=== PATIENT | female | born 1945 | race Caucasian/White ===

== ENCOUNTER 2023-09-09 17:25 | Outpatient (CLI) | payer MEDICARE, BC, SELFPAY ==
[2023-09-09 13:49] LABS: ALT 24 U/L (14-59); AST 15 U/L (15-37); Albumin 3.8 g/dL (3.4-5.0); Alkaline Phosphatase 72 U/L (46-116); Anion Gap 7.3 mmol/L (3-11); BUN 15 mg/dL (7-18); Bilirubin, Total 0.71 mg/dL (0.2-1.0); CO2 26.7 mmol/L (21.0-32.0); Calcium 10.4 mg/dL (8.5-10.1); Chloride 108 mmol/L (98-107); Estimated GFR 57.31 (mL/min/1.73m2); Glucose 120 mg/dL (74-106); Potassium 3.7 mmol/L (3.5-5.1); Sodium 142 mmol/L (136-145); Total Protein 6.6 g/dL (6.4-8.2)
--- OUTSIDE RECORDS SUMMARY | 2023-09-09 17:28 | XMS_ITS | Continuity of Care Document ---
Author Name Unknown Organization [facility] Address [address] [place] [address] Care Team Providers Care Assembler Steam And Gas Turbine Name Role Phone Donna Ramos Primary Care Physician Encounter [place] Date(s): 10/14/22 - 10/14/[address] [address] Encounter Diagnosis Breast mass in female(Discharge Diagnosis) - 10/14/22 Discharge Disposition: Home or Self Care Attending Physician: Donna Ramos MD Admitting Physician: Donna Ramos MD Referring Physician: Donna Ramos MD Allergies, Adverse Reactions, Alerts Substance Reaction Severity Status codeine Unknown Active Assessment and Plan Future Appointments Immunizations Given and Recorded Vaccine Date Status Refusal Reason SARS-CoV-2 (COVID-19) mRNA-1273 vaccine 01/15/21 R ecorded SARS-CoV-2 (COVID-19) mRNA-1273 vaccine 05/22/20 R ecorded SARS-CoV-2 (COVID-19) mRNA-1273 vaccine 04/24/20 R ecorded influenza, unspecified formulation 12/19/20 Record ed tetanus-diphth toxoids (Td) adult/adol 1 08/12/18 Recorded tetanus-diphth toxoids (Td) adult/adol 02/11/06 Re corded influenza virus vaccine, inactivated 12/16/17 Zaki rded influenza virus vaccine, inactivated 01/05/16 Zaki rded influenza virus vaccine, inactivated 01/13/15 Zaki rded influenza virus vaccine, inactivated 12/10/13 Zaki rded influenza virus vaccine, inactivated 12/18/12 Zaki rded influenza virus vaccine, inactivated 12/21/10 Zaki rded influenza virus vaccine, inactivated 01/12/10 Zaki rded influenza virus vaccine, inactivated 02/22/09 Zaki rded influenza virus vaccine, inactivated 02/25/08 Zaki rded influenza virus vaccine, inactivated 02/24/07 Zaki rded influenza virus vaccine, inactivated 01/08/06 Zaki rded pneumococcal 13-valent conjugate vaccine 01/05/16 Recorded pneumococcal 23-polyvalent vaccine 03/13/10 Record ed Novel [id number], all formulation 03/09/09 Recorded tetanus/diphth/pertuss (Tdap) adult/adol 02/11/06 Recorded varicella virus vaccine 03/10/00 Recorded zoster vaccine live 03/10/00 Recorded 1Result Comment: Educational information provided. Patient tolerated well. Medications cyclobenzaprine 5 mg oral tablet 5 mg = 1 tab, Oral, TID, PRN as needed for muscle spasm, # 30 tab, 0 Refill(s), Pharmacy: [facility] Start Date: 11/07/21 Status: Ordered lidocaine 3% topical cream See Instructions, Apply to area as needed for pain, # 30 g, 0 Refill(s), Pharmacy: [facility] Start Date: 08/20/22 Status: Ordered losartan 50 mg oral tablet 50 mg = 1 tab, Oral, Daily, # 90 tab, 4 Refill(s), [facility] Start Date: 03/29/22 Status: Ordered metoprolol succinate 25 mg oral tablet, extended release 25 mg = 1 tab, Oral, Daily, # 90 tab, 4 Refill(s), [facility] Start Date: 10/10/22 Status: Ordered omeprazole 20 mg oral delayed release capsule 20 mg = 1 cap, Oral, Daily, # 90 cap, 3 Refill(s), [facility] Start Date: 02/13/22 Status: Ordered promethazine 25 mg oral tablet 25 mg = 1 tab, Oral, BID, PRN as needed for motion sickness, # 20 tab, 0 Refill(s), Pharmacy: [facility] Start Date: 07/24/21 Status: Ordered Problem List Condition Confirmation Course Effective Dates Status H ealth Status Informant Anemia Confirmed Active Benign neoplasm of skin Confirmed 06/15/21 Active Benign paroxysmal positional vertigo Confirmed Active Cellulitis and abscess of toe Confirmed Active Chest pain Confirmed Active Chronic allergic conjunctivitis Confirmed Active Colitis Confirmed 08/28/20 Active Contact dermatitis Confirmed Active Epigastric pain Confirmed Active Eustachian tube disorder Confirmed Active Ganglion cyst Confirmed Active Herpesvirus infection Confirmed Active H/O nausea Confirmed Active Hypercalcemia Confirmed Active Hyperlipidemia Confirmed Active Hypertensive disorder Confirmed Active Idiopathic osteoarthritis Confirmed Active 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 of forearm Confirmed 06/15/21 Active Localized, primary osteoarthritis Confirmed Active Medial epicondylitis Confirmed Active Midline cystocele Confirmed Active Mixed hyperlipidemia Confirmed Active Motion sickness Confirmed Active Neuropathy Confirmed Active Osteoarthritis of knee Confirmed Active Pain in elbow Confirmed Active Pain in right foot Confirmed Active Medicare annual wellness visit, initial Confirmed Active Personal history of primary malignant neoplasm of breast Confirmed Active Polyp of colon Confirmed Active Primary malignant neoplasm of female breast Confirmed Active Procedures Procedure Date Related Diagnosis Body Site Status Mammogram - screening 01/17/22 Com pleted MRI of right upper arm 03/29/21 Co mpleted Mammogram 1 12/31/20 Completed Colonoscopy 2 02/13/[address] of abdomen and pelvis with contrast 12/28/19 Completed Colonoscopy 3 07/13/13 Completed Colonoscopy 4 07/02/10 Completed Lumpectomy 03/09/01 Completed Procedure on elbow 03/09/99 Comple geovanny Repair of cystocele 1995 Compl eted Hysterectomy 03/09/92 Completed Appendectomy 03/09/83 Completed Cholecystectomy 03/09/83 Completed Tubal ligation 03/09/72 Completed Tonsillectomy 5 Completed 1BI-RADS Category: 2 benign finding- no evidence of cancer 2wnl moderate dificulty, no gross evidence of colitis. 07/14/13 colitis. 4rt colon polyp x1 5as a child Social History Social History Type Response Smoking Status Smoking tobacco use: Former tobacco user;Never 1 entered on: 10/09/22 Sex Female 1smoked 1 pack/week for 5-7 years, when in Patient Care team information Care Team Personnel Name: Donna Ramos MD Position: Physician Member Role: Informed Provider Address: Address: [address] [address]- [place] Care Team Related Persons Name: JEFFY DE LA TORRE Address: Home [address] [place] [address], [phone] Name: JEFFY DE LA TORRE Address: Home [address] [place], [phone] Name: KEHINDE DE LA TORRE Address: [place] [address] [facility], [address] Name: DIMAS DE LA TORRE Address: Home
--- OUTSIDE RECORDS SUMMARY | 2023-09-09 17:29 | XMS_ITS | Continuity of Care Document ---
Author Name Unknown Organization [facility] Address [address] [place] [address] Care Team Providers Care Mild Disabilities Teacher Name Role Phone Donna Ramos Primary Care Physician Encounter [place] Date(s): 01/18/22 - 01/18/[address] [address] Encounter Diagnosis Medicare annual wellness visit, initial(Discharge Diagnosis) - 01/18/22 Discharge Disposition: Home or Self Care Attending Physician: Donna Ramos MD Admitting Physician: Donna Ramos MD Referring Physician: Donna Ramos MD Allergies, Adverse Reactions, Alerts Substance Reaction Severity Status codeine Unknown Active Assessment and Plan Future Appointments Future Scheduled Tests Laboratory* CBC w/ Diff 09/26/21 * Comprehensive Metabolic Panel 09/26/21 Immunizations Given and Recorded Vaccine Date Status [...] pneumococcal 23-polyvalent vaccine 03/13/10 Record ed Novel [id number], all formulation 03/09/09 Recorded tetanus/diphth/pertuss (Tdap) adult/adol 02/11/06 Recorded varicella virus vaccine 03/10/00 Recorded zoster vaccine live 03/10/00 Recorded 1Result Comment: Educational information provided. Patient tolerated well. Medications cyclobenzaprine 5 mg oral tablet 5 mg = 1 tab, Oral, TID, PRN as needed for muscle spasm, # 30 tab, 0 Refill(s), Pharmacy: [facility] Start Date: 11/07/21 Status: Ordered losartan 25 mg oral tablet 25 mg = 1 tab, Oral, Daily, # 90 tab, 4 Refill(s), Pharmacy: [facility] Start Date: 09/26/21 Status: Ordered omeprazole 20 mg oral delayed release capsule 20 mg = 1 cap, Oral, Daily, # 90 cap, 1 Refill(s) Start Date: 09/25/21 Status: Ordered predniSONE 20 mg oral tablet 40 mg = 2 tab, Oral, Daily, # 10 tab, 0 Refill(s), Pharmacy: [facility] Start Date: 11/07/21 Stop Date: 11/12/21 Status: Ordered promethazine 25 mg oral tablet 25 mg = 1 tab, Oral, BID, PRN as needed for motion sickness, # 20 tab, 0 Refill(s), Pharmacy: [facility] Start Date: 07/24/21 Status: Ordered Problem [...] Procedure Date Related Diagnosis Body Site Status MRI of right upper arm 03/29/21 Co [...] use: Former tobacco user;Never 1 entered on: 09/19/21 Sex Female 1smoked 1 pack/week for 5-7 years, when in Patient Care team information Care Team Personnel Name: Donna Ramos MD Position: Physician Member Role: Primary Care Physician Address: Address: [facility] [address] [address]- Care Team Related Persons Name: JEFFY DE LA TORRE Address: Home [address] [phone] Name: KEHINDE DE LA TORRE Address: Home [address] [place] [id number] Name: DIMAS DE LA TORRE Address: Home
--- OUTSIDE RECORDS SUMMARY | 2023-09-09 17:29 | XMS_ITS | Continuity of Care Document ---
Author Name Unknown Organization [facility] Address [address] [place] [address] Care Team Providers Care Crown Ceramist Name Role Phone Donna Ramos Primary Care Physician Encounter [facility] Date(s): 10/15/22 - 10/15/22 [facility] [address] [place] [address] Discharge Disposition: Home Allergies, Adverse Reactions, Alerts Substance Reaction Severity Status codeine Unknown Active Assessment and Plan Future Appointments Future Scheduled Tests Laboratory* PT/ INR 10/15/22 * Platelet Count 10/15/22 Radiology* MG Mammo Diagnostic Right 10/15/22 * US Breast Biopsy w/ Clip Right 10/15/22 Immunizations Given and Recorded Vaccine Date Status [...] 12/18/12 Zaki rded influenza virus vaccine, inactivated 10/14/11 Zaki rded influenza virus vaccine, inactivated 01/12/10 Zaki rded influenza virus vaccine, inactivated 02/22/09 Zaki rded influenza virus vaccine, inactivated 02/25/08 Zaki rded influenza virus vaccine, inactivated 02/24/07 Zaki rded influenza virus vaccine, inactivated 01/08/06 Zaki rded pneumococcal 13-valent conjugate vaccine 01/05/16 Recorded pneumococcal 23-polyvalent vaccine 03/13/10 Record ed Novel [id number], all formulation 03/09/09 Recorded tetanus/diphth/pertuss (Tdap) adult/adol 02/11/06 Recorded varicella virus vaccine 03/10/00 Recorded zoster vaccine live 03/10/00 Recorded 1Result Comment: Educational information provided. Patient tolerated well. Medications cyclobenzaprine 5 mg oral tablet 5 mg = 1 tab, Oral, TID, PRN as needed for muscle spasm, # 30 tab, 0 Refill(s), Pharmacy: [facility] Start Date: 11/07/21 Status: Ordered lidocaine 3% topical cream See Instructions, Apply to area as needed for pain, # 30 g, 0 Refill(s), Pharmacy: [facility] Start Date: 08/20/22 Status: Ordered losartan 50 mg oral tablet 50 mg = 1 tab, Oral, Daily, # 90 tab, 4 Refill(s), [facility] Start Date: 03/29/22 Status: Ordered metoprolol succinate 25 mg oral tablet, extended release 25 mg = 1 tab, Oral, Daily, # 90 tab, 4 Refill(s), [facility] Start Date: 10/10/22 Status: Ordered omeprazole 20 mg oral delayed release capsule 20 mg = 1 cap, Oral, Daily, # 90 cap, 3 Refill(s), Pharmacy: [facility] Start Date: 02/13/22 Status: Ordered promethazine 25 mg oral tablet 25 mg = 1 tab, Oral, BID, PRN as needed for motion sickness, # 20 tab, 0 Refill(s), Pharmacy: [facility] Start Date: 07/24/21 Status: Ordered Problem [...] Physician Member Role: Informed Provider Address: Address: [address] [address]- [place] Care Team Related Persons Name: JEFFY DE LA TORRE Address: Home [address] [place] [phone] Name: EJFFY DE LA TORRE Address: Home [address] [phone] Name: KEHINDE DE LA TORRE Address: [place] [address] [facility], [address] Name: DIMAS DE LA TORRE Address: Home
--- OUTSIDE RECORDS SUMMARY | 2023-09-09 17:29 | XMS_ITS | Continuity of Care Document ---
Author Name Unknown Organization [facility] Address [address] [place] [address] Care Team Providers Care Prosthetic Dentist Name Role Phone Richard Donna Curtis Primary Care Physician Encounter [place]CT[place] Date(s): 04/11/23 - 04/11/23 [facility] [address] [place] [address] Discharge Disposition: Home Allergies, Adverse Reactions, Alerts Substance Reaction Severity Status codeine Unknown Active Assessment and Plan Future Appointments Future Scheduled Tests Radiology* CT Chest w/o Contrast 04/11/23 Immunizations Given and Recorded Vaccine Date Status Refusal Reason SARS-CoV-2 (COVID-19) Moderna (cvx 312) 1 01/07/23 Recorded influenza virus vaccine, inactivated 2 12/11/22 Re corded influenza virus vaccine, inactivated 3 12/11/21 Re corded influenza virus vaccine, inactivated 12/16/17 [...] influenza virus vaccine, inactivated 01/08/06 Zaki rded zoster vaccine, inactivated 4 11/21/22 Recorded zoster vaccine, inactivated 5 09/13/22 Recorded SARS-CoV-2 mRNA (tozinameran 12y+) bival 6 12/17/21 Recorded SARS-CoV-2 (COVID-19) mRNA-1273 vaccine 01/15/21 R ecorded SARS-CoV-2 (COVID-19) mRNA-1273 vaccine 05/22/20 R ecorded SARS-CoV-2 (COVID-19) mRNA-1273 vaccine 04/24/20 R ecorded influenza, unspecified formulation 12/19/20 Record ed tetanus-diphth toxoids (Td) adult/adol 7 08/12/18 Recorded tetanus-diphth toxoids (Td) adult/adol 02/11/06 Re corded pneumococcal 13-valent conjugate vaccine 01/05/16 Recorded pneumococcal 23-polyvalent vaccine 03/13/10 Record ed Novel [id number], all formulation 03/09/09 Recorded tetanus/diphth/pertuss (Tdap) adult/adol 02/11/06 Recorded varicella virus vaccine 03/10/00 Recorded zoster vaccine live 03/10/00 Recorded 1Result Comment: Cintia 2Result Comment: high-dose quadrivalent Karissa 3Result Comment: karissa 4Result Comment: Karissa 5Result Comment: karissa 6Result Comment: Karissa 7Result Comment: Educational information provided. Patient tolerated well. Medications cyclobenzaprine 5 mg oral tablet 5 mg = 1 tab, Oral, TID, PRN as needed for muscle spasm, # 30 tab, 0 Refill(s), Pharmacy: [facility] Start Date: 11/07/21 Status: Ordered letrozole 2.5 mg oral tablet 2.5 mg = 1 tab, Oral, Daily, 0 Refill(s) Start Date: 04/11/23 Status: Ordered lidocaine 3% topical cream See Instructions, Apply to area as needed for pain, # 30 g, 0 Refill(s), Pharmacy: [facility] Start Date: 08/20/22 Status: Ordered losartan 50 mg oral tablet 1 tab, Oral, Daily, # 90 tab, 3 Refill(s), Pharm[facility]: [facility] Start Date: 12/23/22 Status: Ordered metoprolol succinate 25 mg oral tablet, extended release 25 mg = 1 tab, Oral, Daily, # 90 tab, 4 Refill(s), Pharmacy: [facility] Start Date: 10/10/22 Status: Ordered omeprazole 20 mg oral delayed release capsule 20 mg = 1 cap, Oral, Daily, # 90 cap, 3 Refill(s), [facility], 165.8, cm, 10/09/22 11:20:00 EDT, Height Start Date: 02/24/23 Status: Ordered promethazine 25 mg oral tablet 25 mg = 1 tab, Oral, BID, PRN as needed for motion sickness, # 20 tab, 0 Refill(s), Pharmacy: [facility] Start Date: 07/24/21 Status: Ordered Problem [...] Procedure Date Related Diagnosis Body Site Status Partial mastectomy 1 12/25/22 Comp leted Mammogram - screening 01/17/22 Com pleted MRI of right upper arm 03/29/21 Co mpleted Mammogram 2 12/31/20 Completed Colonoscopy 3 02/13/[address] of abdomen and pelvis with contrast 12/28/19 Completed Colonoscopy 4 07/13/13 Completed Colonoscopy 5 07/02/10 Completed Lumpectomy 03/09/01 Completed Procedure on elbow 03/09/99 Comple geovanny Repair of cystocele 1995 Compl eted Hysterectomy 03/09/92 Completed Appendectomy 03/09/83 Completed Cholecystectomy 03/09/83 Completed Tubal ligation 03/09/72 Completed Tonsillectomy 6 Completed 1Done at [facility] 2BI-RADS Category: 2 benign finding- no evidence of cancer 3wnl moderate dificulty, no gross evidence of colitis. 07/14/13 colitis. 5rt colon polyp x1 6as a child Social History Social History Type Response Smoking Status Smoking tobacco use: Former tobacco user;Never 1 entered on: 10/09/22 Sex Female 1smoked 1 pack/week for 5-7 years, when in 's Patient Care team information Care Team Personnel Name: Donna Ramos MD Position: Physician Member Role: Informed Provider Address: Address: [place] [address]- Care Team Related Persons Name: JEFFY DE LA TORRE Address: Home [address] [facility] [facility], [phone] Name: JEFFY DE LA TORRE Address: Home [address] [facility], [phone] Name: JEFFY DE LA TORRE Address: Home [place] [phone] Name: KEHINDE DE LA TORRE Address: Home [address] [facility], [address] Name: DIMAS DE LA TORRE
--- OUTSIDE RECORDS SUMMARY | 2023-09-09 17:29 | XMS_ITS | Continuity of Care Document ---
Author Name Unknown Organization [facility] Address [address] [place] [address] Care Team Providers Care Real Estate Assistant Name Role Phone Donna Ramos Primary Care Phys[facility] [address] [place] [address] Encounter Diagnosis Breast mass in female(Discharge Diagnosis) - 10/24/22 Discharge Disposition: Home or Self Care Attending Physician: Donna Ramos MD Admitting Physician: Donna Ramos MD Referring Physician: Donna Ramos MD Allergies, Adverse Reactions, Alerts Substance Reaction Severity Status codeine Unknown Active Assessment and Plan Future Appointments Diagnostic Tests Pending * Surgical Pathology [facility] 10/24/22 Immunizations Given and Recorded Vaccine Date Status [...] pneumococcal 23-polyvalent vaccine 03/13/10 Record ed Novel [id number], all formulation 03/09/09 Recorded tetanus/diphth/pertuss (Tdap) adult/adol 02/11/06 Recorded varicella virus vaccine 03/10/00 Recorded zoster vaccine live 03/10/00 Recorded 1Result Comment: Educational information provided. Patient tolerated well. Medications cyclobenzaprine 5 mg oral tablet 5 mg = 1 tab, Oral, TID, PRN as needed for muscle spasm, # 30 tab, 0 Refill(s), Pharmacy: [facility] Start Date: 11/07/21 Status: Ordered lidocaine 3% topical cream See Instructions, Apply to area as needed for pain, # 30 g, 0 Refill(s), Pharmacy: [facility] Start Date: 08/20/22 Status: Ordered losartan 50 mg oral tablet 50 mg = 1 tab, Oral, Daily, # 90 tab, 4 Refill(s), Pharmacy: [facility] Start Date: 03/29/22 Status: Ordered metoprolol succinate 25 mg oral tablet, extended release 25 mg = 1 tab, Oral, Daily, # 90 tab, 4 Refill(s), Pharmacy: [facility] Start Date: 10/10/22 Status: Ordered omeprazole 20 mg oral delayed release capsule 20 mg = 1 cap, Oral, Daily, # 90 cap, 3 Refill(s), Pharmacy: [facility] Start Date: 02/13/22 Status: Ordered promethazine 25 mg oral tablet 25 mg = 1 tab, Oral, BID, PRN as needed for motion sickness, # 20 tab, 0 Refill(s), Pharmacy: [facility] Start Date: 07/24/21 Status: Ordered Problem [...] 1 pack/week for 5-7 years, when in ' Patient Care team information Care Team Personnel Name: Donna Ramos MD Position: Physician Member Role: Informed Provider Address: Address: [address] Care Team Related Persons Name: JEFFY DE LA TORRE Address: Home [address] [place], [place] [address], [phone] Name: JEFFY DE LA TORRE Address: [place] [address] [facility], [id number] Name: JEFFY DE LA TORRE Address: [address] [place], [phone] Name: KEHINDE DE LA TORRE Address: [place] [address] [facility], [address] Name: DIMAS DE LA TORRE
--- OUTSIDE RECORDS SUMMARY | 2023-09-09 17:29 | XMS_ITS | Continuity of Care Document ---
Author Name Unknown Organization [facility] Address [address] [place] [address] Care Team Providers Care Gas Manager Name Role Phone Donna Ramos Kirsten Primary Care Physician Encounter [facility] Date(s): 12/10/21 - 12/10/21 [facility] [address] [place] [address] Discharge Disposition: Home or Self Care Attending Physician: Estela Mustafa PA-C Admitting Physician: Estela Mustafa PA-C Referring Physician: Estela Mustafa PA-C Allergies, Adverse Reactions, Alerts Substance Reaction Severity Status codeine Unknown Active Assessment and Plan Future Appointments Future Scheduled Tests Laboratory* CBC w/ Diff 09/26/21 * Comprehensive Metabolic Panel 09/26/21 Radiology* MG Mammo Screening Bilateral w/ Rodriguez 09/26/21 Immunizations Given and Recorded Vaccine Date [...] pneumococcal 23-polyvalent vaccine 03/13/10 Record ed Novel [id number], all formulation 03/09/09 Recorded tetanus/diphth/pertuss (Tdap) adult/adol 02/11/06 Recorded varicella virus vaccine 03/10/00 Recorded zoster vaccine live 03/10/00 Recorded 1Result Comment: Educational information provided. Patient tolerated well. Medications cyclobenzaprine 5 mg oral tablet 5 mg = 1 tab, Oral, TID, PRN as needed for muscle spasm, # 30 tab, 0 Refill(s), Pharmacy: [facility] Start Date: 11/07/21 Status: Ordered losartan 25 mg oral tablet 25 mg = 1 tab, Oral, Daily, # 90 tab, 4 Refill(s), Pharmacy: [facility] Start Date: 09/26/21 Status: Ordered omeprazole 20 mg oral delayed release capsule 20 mg = 1 cap, Oral, Daily, # 90 cap, 1 Refill(s) Start Date: 09/25/21 Status: Ordered predniSONE 20 mg oral tablet 40 mg = 2 tab, Oral, Daily, # 10 tab, 0 Refill(s), Pharmacy: [facility] Start Date: 11/07/21 Stop Date: 11/12/21 Status: Ordered promethazine 25 mg oral tablet 25 mg = 1 tab, Oral, BID, PRN as needed for motion sickness, # 20 tab, 0 Refill(s), Pharmacy: [facility] Start Date: 07/24/21 Status: Ordered Problem [...] years, when in Patient Care team information Personnel Name: Donna Ramos MD Address: Address: [address]
--- OUTSIDE RECORDS SUMMARY | 2023-09-09 17:29 | XMS_ITS | Continuity of Care Document ---
Author Name Unknown Organization [facility] Address [address] [place] [address] Care Team Providers Care Electrical Test Engineer Name Role Phone Donna Ramos Kirsten Primary Care Physician Encounter [facility] Date(s): 02/07/23 - 02/07/23 [facility] [address] [place] [address] Discharge Disposition: Home or Self Care Attending Physician: Rosie Garcia MD Admitting Physician: Rosie Garcia MD Referring Physician: Rosie Garcia MD Allergies, Adverse Reactions, Alerts Substance Reaction [...] pneumococcal 23-polyvalent vaccine 03/13/10 Record ed Novel [id number], all formulation 03/09/09 Recorded tetanus/diphth/pertuss (Tdap) adult/adol [...] spasm, # 30 tab, 0 Refill(s), Pharmacy: [facility] Start Date: 11/07/21 Status: Ordered lidocaine 3% topical cream See Instructions, Apply to area as needed for pain, # 30 g, 0 Refill(s), Pharmacy: [facility] Start Date: 08/20/22 Status: Ordered losartan 50 mg oral tablet 1 tab, Oral, Daily, # 90 tab, 3 Refill(s), Pharmacy: [facility] Start Date: 12/23/22 Status: Ordered metoprolol succinate 25 mg oral tablet, extended release 25 mg = 1 tab, Oral, Daily, # 90 tab, 4 Refill(s), [facility] Start Date: 10/10/22 Status: Ordered omeprazole 20 mg oral delayed release capsule 20 mg = 1 cap, Oral, Daily, # 90 cap, 3 Refill(s), Pharmacy: [id number] Start Date: 02/13/22 Status: Ordered promethazine 25 mg oral tablet 25 mg = 1 tab, Oral, BID, PRN as needed for motion sickness, # 20 tab, 0 Refill(s), Pharmacy: [facility] Start Date: 07/24/21 Status: Ordered Problem [...] 1 pack/week for 5-7 years, when in 20's Patient Care team information Care Team Personnel Name: Donna Ramos MD Position: Physician Member Role: Informed Provider Address: Address: [place] [address]- [place] Care Team Related Persons Name: JEFFY DE LA TORRE Address: Home [address] [facility], [phone] Name: JEFFY DE LA TORRE Address: Home [address] [facility], [phone] Name: JEFFY DE LA TORRE Address: Home [place] [phone] Name: KEHINDE DE LA TORRE Address: Home [address] [facility], [address] Name: DIMAS DE LA TORRE Name: DIMAS DE LA TORRE
--- OUTSIDE RECORDS SUMMARY | 2023-09-09 17:29 | XMS_ITS | Continuity of Care Document ---
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 Patient tolerated well. Medications cyclobenzaprine 5 mg oral tablet 5 mg = 1 tab, Oral, TID, PRN as needed for muscle spasm, # 30 tab, 0 Refill(s), Pharmacy: [facility] Start Date: 11/07/21 Status: Ordered lidocaine 3% topical cream See Instructions, Apply to area as needed for pain, # 30 g, 0 Refill(s), Pharmacy: [facility] Start Date: 08/20/22 Status: Ordered losartan 50 mg oral tablet 50 mg = 1 tab, Oral, Daily, # 90 tab, 4 Refill(s), [facility] Start Date: 03/29/22 Status: Ordered omeprazole 20 mg oral delayed release capsule 20 mg = 1 cap, Oral, Daily, # 90 cap, 3 Refill(s), Pharmacy: [facility] Start Date: 02/13/22 Status: Ordered promethazine 25 mg oral tablet 25 mg = 1 tab, Oral, BID, PRN as needed for motion sickness, # 20 tab, 0 Refill(s), Pharmacy: [facility] Start Date: 07/24/21 Status: Ordered Problem [...] 4rt colon polyp x1 5as a child Results Laboratory List Name Date Automated Diff 09/17/22 CBC w/ Diff 09/17/22 Comprehensive Metabolic Panel (CMP) 09/17 Hemoglobin A1c 09/17/22 Lipid Panel 09/17/22 Most recent to oldest [Reference Range]: 1 WBC [5.0-10.0 x10^3/mcL] 5.9 x10^3/mcL (09/17/22 7:25 AM) RBC [4.1-5.3 x10^6/mcL] 4.9 x10^6/mcL (09/17/22 7:25 AM) Neutro Auto [40.0-75.0 %] 63.9 % (09/17/22 7:25 AM) Lymph Auto [20.0-50.0 %] 24.3 % (09/17/22 7:25 AM) [place] Auto [2.0-15.0 %] 8.3 % (09/17/22 7:25 AM) Basophil Auto [0.0-1.0 %] 1.0 % (09/17/22 7:25 AM) BUN [7-18 mg/dL] 17 mg/dL (09/17/22 7:25 AM) Cholesterol Total [50-200 mg/dL] 208 mg/ dL *HI* (09/17/22 7:25 AM) LDL [0-130 mg/dL] 131 mg/dL *HI* (09/17/22 7:25 AM) Glucose Level [74-106 mg/dL] 114 mg/dL *HI* (09/17/22 7:25 AM) Potassium Level [3.5-5.1 mmol/L] 4.2 mmo l/L (09/17/22 AM) MCV [80.0-96.0 fL] 91.0 fL (09/17/22: AM) HDL [40-60 mg/dL] 49 mg/dL (09/17/22:25 AM) AST [15-37 unit/L] 14 unit/L *LOW* (09/17/22 AM) ALT [14-59 unit/L] 26 unit/L (09/17/22 7:25 AM) MCHC [31.0-35.0 g/dL] 32.9 g/dL (09/17/22 7: AM) Sodium Level [136-145 mmol/L] 138 mmol/L (09/17/22:25 AM) Hct [37.0-47.0 %] 44.4 % (09/17/22: AM) Triglycerides [0-150 mg/dL] 141 mg/dL (09/17/22 7:25 AM) Calcium Level [8.5-10.1 mg/dL] 10.1 mg/d L (09/17/22 AM) Albumin Level [3.4-5.0 g/dL] 3.6 g/dL (09/17/22 7:25 AM) Protein Total [6.4-8.2 g/dL] 6.8 g/dL (09/17/22 7:25 AM) MCH [26.0-32.0 pg] 29.9 pg (09/17/22 7:25 AM) Neutro Absolute 3.8 x10^3/mcL *NA* (09/17/22 7:25 AM) Bilirubin Total [0.2-1.0 mg/dL] 0.4 mg/d L (09/17/22 7:25 AM) Hgb [12.0-16.0 g/dL] 14.6 g/dL (09/17/22 7:25 AM) Alk Phos [46-146 unit/L] 71 unit/L (09/17/22 7:25 AM) Platelets [130-450 x10^3/mcL] 210 x10^3/ mcL (09/17/22 7:25 AM) CO2 [21-32 mmol/L] 30 mmol/L (09/17/22 7:25 AM) eGFR Non-AA [>=60] 57 *LOW* (09/17/22 7:25 AM) eGFR AA [>=60] 57 *LOW* (09/17/22 7:25 AM) Hemoglobin A1c [4.0-6.0 %] 5.7 % (09/17/22 7:25 AM) Chloride Level [98-107 mmol/L] 105 mmol/ L (09/17/22 7:25 AM) RDW-CV [11.5-14.5 %] 12.5 % (09/17/22 7:25 AM) Imm Gran Auto [0.0-0.9 %] 0.3 % (09/17/22 7:25 AM) Creatinine Level [0.55-1.02 mg/dL] 1.01 mg/dL (09/17/22 7:25 AM) Eos, Auto [1.0-6.0 %] 2.2 % (09/17/22 7:25 AM) Social History Social History Type Response Smoking Status Smoking tobacco use: Former tobacco user;Never 1 entered on: 09/19/21 Sex Female 1smoked 1 pack/week for 5-7 years, when in ' Patient Care team information Care Team Personnel Name: Donna Ramos MD Position: Physician Member Role: Informed Provider Address: Address: [address] Care Team Related Persons Name: JEFFY DE LA TORRE Address: Home [address] [place], [phone] Name: KEHINDE DE LA TORRE Address: [place] [address] [facility], [address] Name: DIMAS DE LA TORRE Address: Home
--- OUTSIDE RECORDS SUMMARY | 2023-09-09 17:29 | XMS_ITS | Continuity of Care Document ---
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 Name Role Phone Donna Ramos Primary Care Physician [facility] 06/09/23 - 06/09/23 [facility] [address] [place] [address] Encounter Diagnosis Right lower lobe pulmonary infiltrate(Discharge Diagnosis) - 06/09/23 Discharge Disposition: Home or Self Care Attending [...] Zaki rded influenza virus vaccine, inactivated 02/22/09 Zkai rded influenza virus vaccine, inactivated 02/25/08 Zaki [...] pneumococcal 23-polyvalent vaccine 03/13/10 Record ed Novel [id number], all formulation 03/09/09 Recorded tetanus/diphth/pertuss (Tdap) adult/adol [...] spasm, # 30 tab, 0 Refill(s), Pharmacy: [facility] Start Date: 11/07/21 Status: Ordered letrozole 2.5 mg oral tablet 2.5 mg = 1 tab, Oral, Daily, 0 Refill(s) Start Date: 04/11/23 Status: Ordered lidocaine 3% topical cream See Instructions, Apply to area as needed for pain, # 30 g, 0 Refill(s), Pharmacy: [facility] Start Date: 08/20/22 Status: Ordered losartan 50 mg oral tablet 1 tab, Oral, Daily, # 90 tab, 3 Refill(s), [facility]acy: [facility] Start Date: 12/23/22 Status: Ordered metoprolol succinate 25 mg oral tablet, extended release 25 mg = 1 tab, Oral, Daily, # 90 tab, 4 Refill(s), [facility] Start Date: 10/10/22 Status: Ordered omeprazole 20 mg oral delayed release capsule 20 mg = 1 cap, Oral, Daily, # 90 cap, 3 Refill(s), Pharmacy: [facility], 165.8, cm, 10/09/22 11:20:00 EDT, Height Start Date: 02/24/23 Status: Ordered Phenergan 25 mg oral tablet See Instructions, TAKE ONE TABLET BY MOUTH TWICE A DAY NEEDED FOR MOTION SICKNESS, # 20 tab, 1 Refill(s), Pharmacy: [facility], 165.8, cm, 10/09/22 11:20:00 EDT, Height, 75.55, kg, 04/11/23 10:33:00 EST, Weight Dosing Start Date: 04/21/23 Status: Ordered Problem List Condition Confirmation Course [...] 03/09/72 Completed Tonsillectomy 6 Completed 1Done at [facility] 2BI-RADS Category: 2 benign finding- no evidence [...] Physician Member Role: Informed Provider Address: Address: [place] [address]- [place] Care Team Related Persons Name: JEFFY DE LA TORRE Address: Home [address] [facility], [phone] Name: JEFFY DE LA TORRE Address: Home [address] [facility], [phone] Name: JEFFY DE LA TORRE Address: Home [place] [phone] Name: KEHINDE DE LA TORRE Address: Home [address] [facility], [address] Name: DIMAS DE LA TORRE
--- OUTSIDE RECORDS SUMMARY | 2023-09-09 17:29 | XMS_ITS | Continuity of Care Document ---
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 Name Role Phone Donna Ramos Primary Care Physician Encounter [facility] Date(s): 08/20/22 - 08/20/[address] [address] Discharge Disposition: Home or Self Care Attending Physician: Conner Garcia MD Admitting Physician: Conner Garcia MD Referring Physician: Conner Garcia MD Allergies, Adverse Reactions, Alerts Substance Reaction Severity Status codeine Unknown Active Assessment and Plan Future Appointments Diagnostic Tests Pending * Surgical Pathology [facility] 08/20/22 Future Scheduled Tests Laboratory* CBC w/ Diff 08/09/22 * CBC w/ Diff 09/26/21 * Comprehensive Metabolic Panel 08/09/22 * Comprehensive Metabolic Panel 09/26/21 * Lipid Panel 08/09/22 * Hemoglobin A1c 08/09/22 Immunizations Given and Recorded Vaccine Date Status [...] pneumococcal 23-polyvalent vaccine 03/13/10 Record ed Novel [id number], all formulation 03/09/09 Recorded tetanus/diphth/pertuss (Tdap) adult/adol 02/11/06 Recorded varicella virus vaccine 03/10/00 Recorded zoster vaccine live 03/10/00 Recorded 1Result Comment: Educational information provided. Patient tolerated well. Medications cyclobenzaprine 5 mg oral tablet 5 mg = 1 tab, Oral, TID, PRN as needed for muscle spasm, # 30 tab, 0 Refill(s), Pharmacy: [facility] Start Date: 11/07/21 Status: Ordered lidocaine 3% topical cream See Instructions, Apply to area as needed for pain, # 30 g, 0 Refill(s), Pharmacy: [facility] Start Date: 08/20/22 Status: Ordered losartan 50 mg oral tablet 50 mg = 1 tab, Oral, Daily, # 90 tab, 4 Refill(s), [facility] Start Date: 03/29/22 Status: Ordered omeprazole 20 mg oral delayed release capsule 20 mg = 1 cap, Oral, Daily, # 90 cap, 3 Refill(s), [facility] Start Date: 02/13/22 Status: Ordered promethazine 25 mg oral tablet 25 mg = 1 tab, Oral, BID, PRN as needed for motion sickness, # 20 tab, 0 Refill(s), Pharmacy: [facility] Start Date: 07/24/21 Status: Ordered Problem [...] Physician Member Role: Informed Provider Address: Address: [address] [address]- Care Team Related Persons Name: JEFFY DE LA TORRE Address: Home [place] [phone] Name: KEHINDE DE LA TORRE Address: [address], [address] Name: DIMAS DE LA TORRE Address: [place]
--- OUTSIDE RECORDS SUMMARY | 2023-09-09 17:29 | XMS_ITS | Continuity of Care Document ---
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 Patient tolerated well. Medications cyclobenzaprine 5 mg oral tablet 5 mg = 1 tab, Oral, TID, PRN as needed for muscle spasm, # 30 tab, 0 Refill(s), Pharmacy: [facility] Start Date: 11/07/21 Status: Ordered lidocaine 3% topical cream See Instructions, Apply to area as needed for pain, # 30 g, 0 Refill(s), Pharmacy: [facility] Start Date: 08/20/22 Status: Ordered losartan 50 mg oral tablet 50 mg = 1 tab, Oral, Daily, # 90 tab, 4 Refill(s), [facility] Start Date: 03/29/22 Status: Ordered metoprolol succinate 25 mg oral tablet, extended release 25 mg = 1 tab, Oral, Daily, # 90 tab, 4 Refill(s), [facility] Start Date: 10/10/22 Status: Ordered omeprazole 20 mg oral delayed release capsule 20 mg = 1 cap, Oral, Daily, # 90 cap, 3 Refill(s), Pharmacy: [facility] Start Date: 02/13/22 Status: Ordered promethazine 25 mg oral tablet 25 mg = 1 tab, Oral, BID, PRN as needed for motion sickness, # 20 tab, 0 Refill(s), Pharmacy: [facility] Start Date: 07/24/21 Status: Ordered Problem [...] Physician Member Role: Informed Provider Address: Address: [address] [address]- [place] Care Team Related Persons Name: JEFFY DE LA TORRE Address: Home [address] [place] [phone] Name: JEFFY DE LA TORRE Address: Home [address] [phone] Name: KEHINDE DE LA TORRE Address: [place] [address] [facility], [address] Name: DIMAS DE LA TORRE Address: Home
--- OUTSIDE RECORDS SUMMARY | 2023-09-09 17:29 | XMS_ITS | Continuity of Care Document ---
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 Name Role Phone Donna Ramos Primary [facility] 10/22/22 [facility] [address] [place] [address] Discharge Disposition: Home or Self Care Attending Physician: Donna Ramos MD Admitting Physician: Donna Ramos MD Referring Physician: Donna Ramos MD Allergies, Adverse Reactions, Alerts Substance Reaction Severity Status codeine Unknown Active Assessment and Plan Future Appointments Future Scheduled Tests Radiology* [facility] Mammo Diagnostic Right 10/15/22 * [...] pneumococcal 23-polyvalent vaccine 03/13/10 Record ed Novel [id number], all formulation 03/09/09 Recorded tetanus/diphth/pertuss (Tdap) adult/adol 02/11/06 Recorded varicella virus vaccine 03/10/00 Recorded zoster vaccine live 03/10/00 Recorded 1Result Comment: Educational information provided. Patient tolerated well. Medications cyclobenzaprine 5 mg oral tablet 5 mg = 1 tab, Oral, TID, PRN as needed for muscle spasm, # 30 tab, 0 Refill(s), Pharmacy: [facility] Start Date: 11/07/21 Status: Ordered lidocaine 3% topical cream See Instructions, Apply to area as needed for pain, # 30 g, 0 Refill(s), Pharmacy: [facility] Start Date: 08/20/22 Status: Ordered losartan 50 mg oral tablet 50 mg = 1 tab, Oral, Daily, # 90 tab, 4 Refill(s), Pharmacy: [facility] Start Date: 03/29/22 Status: Ordered metoprolol succinate 25 mg oral tablet, extended release 25 mg = 1 tab, Oral, Daily, # 90 tab, 4 Refill(s), Pharmacy: [facility] Start Date: 10/10/22 Status: Ordered omeprazole 20 mg oral delayed release capsule 20 mg = 1 cap, Oral, Daily, # 90 cap, 3 Refill(s), Pharmacy: [facility] Start Date: 02/13/22 Status: Ordered promethazine 25 mg oral tablet 25 mg = 1 tab, Oral, BID, PRN as needed for motion sickness, # 20 tab, 0 Refill(s), Pharmacy: [facility] Start Date: 07/24/21 Status: Ordered Problem [...] a child Results Laboratory List Name Date PT/ INR 10/22/22 Platelet Count 10/22/22 Most recent to oldest [Reference Range]: 1 Prothrombin Time [9.0-11.0 seconds] 9.6 seconds (10/22/22 11:25 AM) INR 1.0 1 *NA* (10/22/22 11:25 AM) Platelets [130-450 x10^3/mcL] 227 x10^3/ mcL (10/22/22 11:25 AM) 1Interpretive Data: INR 2-2.5 Prophylaxis: Short term DVT INR 2-3 Prophylaxis: hip and femur surgery Therapy: DVT (3 mos) PE (3-6 mos) TIA (termite treater) Atr Fib (termite treater) Syst. emb post MA Mitral Stenosis with emboli (shelter) Tissue prosthetic valves (3 mos min) INR 3-4.5 Therapy: recurrent DVT, PE (shelter) Prosthetic heart valves (termite treater) Social History Social History Type Response Smoking Status Smoking tobacco use: Former tobacco user;Never 1 entered on: 10/09/22 Sex Female 1smoked 1 pack/week for 5-7 years, when in 's Patient Care team information Care Team Personnel Name: Donna Ramos MD Position: Physician Member Role: Informed Provider Address: Address: [address] Care Team Related Persons Name: JEFFY DE LA TORRE Address: Home [address] [facility], [phone] Name: JEFFY DE LA TORRE Address: Home [address] [facility], [phone] Name: JEFFY DE LA TORRE Address: Home [address] [phone] Name: KEHINDE DE LA TORRE Address: Home [address] [facility], [address] Name: DIMAS DE LA TORRE Address: [place]
== END 2023-09-09 17:26 | disposition home or self-care (01) ==
LOC: LBO 17:27
PROVIDERS: Visit Provider Internal Medicine Hematology & Oncology
DX: C50.911 Malignant neoplasm of unspecified site of right female breast (principal); Z17.0 Estrogen receptor positive status [ER+]; Z79.811 Long term (current) use of aromatase inhibitors
CPT/HCPCS: 36415; 80053

== ENCOUNTER → 2024-02-12 10:19 | Outpatient (BNVA) | payer MEDICARE, BC, SELFPAY | PROVIDERS: PCP Internal Medicine; Referring Provider Internal Medicine | DX: M17.11 Unilateral primary osteoarthritis, right knee (principal) | CPT/HCPCS: 20610; 99203; J1010 ==

== ENCOUNTER 2024-03-11 03:52 | Outpatient (CLI) | payer MEDICARE, BC, SELFPAY ==
[2024-03-11 12:07] LABS: ALT 23 U/L (14-59); AST 15 U/L (15-37); Albumin 3.6 g/dL (3.4-5.0); Alkaline Phosphatase 62 U/L (46-116); Anion Gap 5.7 mmol/L (3-11); BUN 26 mg/dL (7-18); Bilirubin, Total 0.34 mg/dL (0.2-1.0); CO2 28.3 mmol/L (21.0-32.0); CREATININE 1.1 mg/dL (0.55-1.02); Calcium 10.5 mg/dL (8.5-10.1); Chloride 110 mmol/L (98-107); Estimated GFR 51.11 (mL/min/1.73m2); Glucose 76 mg/dL (74-106); Potassium 3.9 mmol/L (3.5-5.1); Sodium 144 mmol/L (136-145); Total Protein 6.6 g/dL (6.4-8.2)
== END 2024-03-11 03:53 | disposition home or self-care (01) ==
LOC: LBO 03:52
PROVIDERS: Internal Medicine Hematology & Oncology; PCP Internal Medicine; Visit Provider Nurse Practitioner Family
DX: C50.911 Malignant neoplasm of unspecified site of right female breast (principal); Z17.0 Estrogen receptor positive status [ER+]; Z79.811 Long term (current) use of aromatase inhibitors
CPT/HCPCS: 36415; 80053

== ENCOUNTER 2024-04-06 15:52 | Outpatient (CLI) | payer MEDICARE, BC, SELFPAY ==
--- NOTE | 2024-04-06 10:30 | DI.RAD_ITS ---
Exam(s) XR KNEE RT 2V AP,LAT XR STANDING ALIGNMENT EXAM: XR STANDING ALIGNMENT and XR knee RT 2 V CLINICAL HISTORY: knee pain, surgical planning. TECHNIQUE: 2D digital imaging was performed. Six images were obtained. COMPARISON: CR XR KNEE 3V RT from 01/07/2024 FINDINGS: BONES: The hips are well maintained. In the left knee, there is mild narrowing of the medial femoral tibial joint. Chondrocalcinosis is seen in the medial femoral tibial joint. In the right knee, the re is mild narrowing of the medial femoral tibial joint. Chondrocalcinosis is seen both medially and laterally. There is a moderate joint effusion. There is an enthesophyte at the superior patella. The ankles are well maintained.There is no significant leg length discrepancy. SOFT TISSUE: Normal. IMPRESSION: Arthrosis of the knees bilaterally. DATA REPOSITORY: RADIATION DOSE DELIVERED:
== END 2024-04-06 15:53 | disposition home or self-care (01) ==
LOC: DIORS 15:52
PROVIDERS: PCP Internal Medicine; Referring Provider Internal Medicine; Visit Provider Student in an Organized Health Care Education/Training Program
DX: M17.11 Unilateral primary osteoarthritis, right knee (principal)
CPT/HCPCS: 99214; 73560; 77073

== ENCOUNTER 2024-05-28 06:01 | Day surgery (SDC) | payer MEDICARE, BC, SELFPAY ==
--- NOTE | 2024-05-27 17:30 | W.ANESPRE ---
General Info Date of Service Date Performed: 05/28/24 Height: 5 ft 6 in Weight: 77.111 kg Body Mass Index (BMI): 27.4 Surgical Procedure: Operation Date: 05/28/24 08:00 Proposed Procedure Side Surgeon p Medial Unicondylar Knee Arthroplasty Right Mike Guthrie MD Meds Allergies and Home Medications Allergies Allergy/AdvReac Type Severity Reaction Status Date / Time codeine Allergy Unknown Unknown Verified 05/28/24 06:28 morphine AdvReac Intermediate Nausea Verified 05/28/24 06:28 Home Medication ?Medication ?Instructions ?Recorded atorvastatin 10 mg tablet 10 mg PO QPM 01/27/24 losartan 50 mg tablet 50 mg PO DAILY 01/27/24 metoprolol succinate 25 mg 25 mg PO DAILY 01/27/24 tablet,extended release 24 hr omeprazole 20 mg capsule,delayed 20 mg PO DAILY 01/27/24 release letrozole 2.5 mg tablet 2.5 mg PO DAILY 02/12/24 zoledronic acid 4 mg/5 mL 2 mg IV ONCE 02/12/24 intravenous solution cholecalciferol (vitamin D3) 50 50 mcg PO DAILY General Health 05/27/24 mcg (2,000 unit) capsule (Vitamin D3) acetaminophen 500 mg tablet 500 mg PO ONCE 05/28/24 (Acetaminophen Pain Relief) Current Visit Medications: Current Medications Generic Name Dose Route Start Last Admin Trade Name Christianq PRN Reason Stop Dose Admin Acetaminophen 1,000 mg 05/28/24 06:00 Acetaminophen 500 Mg Tab PO 05/28/24 23:59 PREOP ROBBIN Celecoxib 400 mg 05/28/24 06:00 Celecoxib 200 Mg Cap PO 05/28/24 23:59 PREOP ROBBIN Gabapentin 300 mg 05/28/24 06:00 Gabapentin 300 Mg Cap PO 05/28/24 23:59 PREOP ROBBIN Ringer's Solution 1,000 mls @ 30 mls/hr 05/28/24 06:00 IV 05/28/24 23:59 INFUSION ROBBIN Cefazolin Sodium/Dextrose 2 gm in 50 mls @ 100 mls/hr 05/28/24 06:00 Ancef Duplex IVPB 05/28/24 23:59 PREOP ROBBIN Tranexamic Acid/Sodium Chloride 1,000 mg in 100 mls @ 600 mls/hr 05/28/24 06:00 IVPB 05/28/24 23:59 PREOP ROBBIN IV Miscellaneous Supplies 1 each 05/28/24 06:00 Iv Access IV 05/28/24 23:59 DIRECTED ROBBIN Sodium Chloride 0 ml 05/28/24 06:00 Normal Saline Flush 10 Ml Syr IV 05/28/24 23:59 PRN PRN Sodium Chloride 0 ml 05/28/24 06:00 Normal Saline 10 Ml Vial IJ 05/28/24 23:59 DIRECTED PRN Sterile Water 0 ml 05/28/24 06:00 Water,Injection,Sterile 10 Ml Vial IJ 05/28/24 23:59 DIRECTED PRN PFSH Active Problems Active Problems: Problem Status Onset Code Arthritis of right knee Acute M17.11 Polyp of colon Acute K63.5 Neuropathy Acute G62.9 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 denies Benign paroxysmal positional vertigo Surgical History Surgical History History of tonsillectomy H/O tubal ligation History of elbow surgery History of cystocele repair History of colonoscopy History of cholecystectomy History of appendectomy History of hysterectomy History of partial mastectomy Tobacco Smoking/Tobacco Use Status: Former Tobacco Use Passive smoking exposure: No Alcohol Alcohol Intake: never Substance Use Substance use: Never Substance use type: does not use Vital Signs and Lab Results Lab Results Blood Type / Crossmatch: No Data to Display Complete Blood Count: No Data to Display Complete Metabolic Panel: No Data to Display Liver Function Panel: No Data to Display Coagulation Panel: No Data to Display Cardiac Panel: No Data to Display Arterial Blood Gas: No Data to Display Venous Blood Gas: No Data to Display Pancreas Panel: No Data to Display Thyroid Panel: No Data to Display Infectious Disease: No Data to Display Blood Cultures: No Data to Display Toxicology Panel: No Data to Display Anesthesia Assessment and Plan Anesthesia History Personal History: PONV Family History: No Family History of Anesthesia Complications Exercise Tolerance Exercise Tolerance: Metabolic Equivalents>4 Cardiac & Pulmonary Exam Cardiac Exam: Normal S1/S2 Heart Sounds Pulmonary Exam: Clear Bilateral Breath Sounds Implantable Cardiac Device Does patient have a Pacemaker or an ICD?: No Airway Exam Known Difficult Airway: No Mallampati Class: 2 Mouth Opening: Normal (> 3cm) Thyromental Distance: Less than 3 cm Neck Range of Motion: Limited ROM Neck Circumference: Normal Teeth Condition: Normal Dentition ASA Classification ASA Score: ASA 2 Emergency Case?: No NPO Status NPO Status: NPO Clears >2 hours, Solids >8 hours Anesthesia Plan Resuscitation Status: Full Code Anesthesia Technique: General Anesthesia Airway Planned: Endotracheal Tube Pain Management: Surgeon and patient request nerve block Monitors Used: Standard Monitors Preoperative Comments:: 78 yo female for partial knee replacement d/t isolated medial OA. Sig PMHx: HTN (losartan, metoprolol), GERD, anemia, neuropathy, vertigo, Breast CA (mastectomy, letrozole), former smoker, Previous Anes: PONV noted in the past. - mastectomy/[facility], igel 3, sevo/prop, phenyl/ephedrine after induction, scop patch. Denies PONV after this procedure. Discussed spinal vs GA, plan for GA. Discussed scop patch and side effect, she denies having these so we will do it today, and she understands that it can be removed at any point and to wash her hands.
[2024-05-27 17:37] VITALS: BMI 27.4
[2024-05-28] VITALS (33 sets, daily range): BP systolic 129–181; BP diastolic 67–107; PULSE 73–95; RESP 16–22; TEMP 36.2–36.6; O2SAT 92–99
[2024-05-28] MEDS: Celecoxib 200 MG CAP 400 MG PO (06:46)
[2024-05-28] MEDS: Acetaminophen 500 MG TAB 1000 MG PO (06:46)
[2024-05-28] MEDS: Gabapentin 300 MG CAP PO (06:46)
[2024-05-28] MEDS: Lactated Ringers 1,000 ML 30 ML IV (06:50)
--- NOTE | 2024-05-28 07:15 | PDOC.DSDIS_ITS ---
Date of service: 05/28/24 Discharge Plan Disposition Patient Disposition: Home Discharge Details Attending Provider: Mike Guthrie Primary Care Provider: Donna Ramos Home Meds and New Rx's Prescriptions: New naproxen 250 mg tablet 250 mg PO BID PRN (Reason: Moderate pain) Qty: 40 0RF tramadol 50 mg tablet 50 mg PO TID PRNQty: 14 0RF aspirin 81 mg tablet,delayed release (DR/EC) 81 mg PO BID 30 Days Qty: 60 0RF Continued zoledronic acid 4 mg/5 mL solution 2 mg IV ONCE Rx Instructions: administer over at least 15 mins letrozole 2.5 mg tablet 2.5 mg PO DAILY atorvastatin 10 mg tablet 10 mg PO QPM losartan 50 mg tablet 50 mg PO DAILY metoprolol succinate 25 mg tablet extended release 24 hr 25 mg PO DAILY omeprazole 20 mg capsule,delayed release(DR/EC) 20 mg PO DAILY cholecalciferol (vitamin D3) [Vitamin D3] 50 mcg (2,000 unit) capsule 50 mcg PO DAILY acetaminophen [Acetaminophen Pain Relief] 500 mg tablet 500 mg PO ONCE Patient Comments: 1000 mg yesterday Discharge Instructions Additional Instructions: Surgery: Right medial unicondylar knee replacement 05/28/24 Activity: Weightbearing as tolerated. Recommend elevation to minimize swelling and discomfort. Walk as comfort allows. May use crutches or walker as needed for a few weeks. It is important to restore full knee extension as soon as possible. Gently increase knee flexion over the next few weeks. Do not rest with pillows behind knee to prevent knee from getting stuck bent. Encourage ankle pumps and wiggling toes to increase circulation. A physical therapy prescription will be sent electronically to begin in 3 weeks. Prescriptions: Aspirin 81 mg take 1 twice a day to prevent a blood clot 30 days Naproxen 250 mg take 1-2 every 12 hours with a meal as needed for moderate pain Tramadol 50 mg take 1 every 8 hours as needed for severe pain You may use [id number] Tylenol (acetaminophen) as needed for mild pain. These pain medications may be taken all at once or in different combinations as needed. Also, recommend Colace (docusate) as a stool softener as surgery and pain medic ine cause constipation. You may try [id number] diphenhydramine (Benadryl) 25-50 mg nightly as a sleep aid Dressings: Leave Band-Aid in place until follow-up. Keep clean and dry at all times. May remove Deshawn wrap tomorrow. May re-wrap with Deshawn wrap to help control swelling as needed. Follow-up: 10-[address] Guthrie You may take off the leg compression Deshawn wrap and stockings tomorrow at home. You may also leave them on a few days longer if you have a history of leg swelling or edema. Let us know right away if you develop any redness, drainage, fevers, chest pain, or trouble breathing. Do not drink alcohol or drive for at least 24 hours after anesthesia. Please call the office during business hours with any questions or concerns. Stand Alone Forms: Anesthesia Discharge Inst., Gurwinder.Nerve Block Instructions, Scopolamine Skin Patch, Shweta Ricketts (DSU) Referrals: Mike Guthrie MD [ [facility] STAFF PHYSICIAN] - 06/09/24 10:30 am Discharge Orders Discharge Orders: Discharge Order (Routine); Ordered 05/28/24 Ordered By: Usama Magana DS: Diagnosis Discharge Diagnosis (1) Arthritis of right knee: Status: Acute
--- NOTE | 2024-05-28 07:21 | W.PM.OP ---
Operative Note Operative Note PRE-OP DIAGNOSIS: Right knee medial compartmental arthritis POST-OP DIAGNOSIS: same PROCEDURE: Right knee medial unicompartmental arthroplasty, CPT # 392[address] The staff assistant was medically required as this procedure involves retraction, protection of neurovascular structures, and manipulation of multiple instruments and implants at the same time, which cannot be done without a skilled staff assistant. SURGEON: Mike Guthrie PHOTO ENGRAVER: Usama Magana ANESTHESIA TYPE: Local By Surgeon, General LMA/ETT and Primary Nerve Block Refer to Anesthesia Record ESTIMATED BLOOD LOSS: 150 COMPLICATIONS: None Patient was transported to: PACU Patient's condition: stable Implants: DePuy Sigma HP partial knee size 3 metal-backed tibial tray, 8 mm tibial insert fixed bearing, size 4 femoral component Indications: Please see complete medical record for details. Findings: Isolated medial compartment arthritis Procedure Description: The patient was taken to the operating room and transferred to the operating room table. General anesthesia was induced. All bony prominences were well-padded. Preoperative antibiotics and 1 g TXA were administered. A tourniquet was placed loosely over padding high on the patient's thigh. The knee and lower extremity were prepped and draped in the usual sterile fashion. The correct patient, procedure, and side of the procedure were all verified prior to incision. A slightly medial of midline longitudinal approach was used to the knee extending from the superior pole the patella to the distal aspect of the tibial tubercle. The quadriceps tendon, patella borders, and patellar tendon were exposed. A full-thickness arthrotomy was performed starting splitting the quadriceps tendon and leaving a sleeve of tissue on the medial aspect of the patella and taking care to progress along the medial margin the patellar tendon. The MCL was elevated off the proximal medial tibia. The tibial alignment jig was set in place on the anterior medial aspect of the tibia and carefully adjusted to achieve proper alignment in the coronal and sagittal planes. Reciprocating saw was used to create the vertical cut at the medial aspect of the medial tibial eminence taking care to protect the ACL ligament footprint. The transverse cut was then done using the microsagittal saw through the jig taking care to retract and protect the MCL. The bone piece and cut were inspected and found to be appropriate for patient anatomy. A box rasp was used to clean up the cut especially the L component. The 8 mm spacer block was inserted and found to have good stability and full extension, a couple millimeters of joint space opening about 20 degrees of flexion, but the flexion gap was closer to 7 mm. The tibial trial spacer block was used to felix the rotational alignment and anterior extent of the femoral component. The spacer block was removed and the tibia was sized with the depth gauge. The distal femoral cutting block was inserted taking care to orient it appropriately. The 1 down guide was used to remove 1 mm less bone from the distal femur to equalize the extension and flexion gaps. The cut was done using the saw through the guide. The posterior cutting block was then applied to the distal cut, ensured to be flush, rotation set, and it was pinned in place. The posterior cut was completed through the guide. The guide was removed, and the femur was sized with the femoral sizing blocks. The appropriate sized cutting jig was selected. Care was taken to ensure the block was flush with the resected distal and posterior femur bone surfaces. A curved gouge was used to cut the profile of the proximal tip of the femoral prosthesis, felix the extent of the anterior chamfer cut, and prevent trochlear cartilage delamination. The anterior cut was done using the osteotomes, the drill was used to drill the 2 peg holes, and the posterior chamfer cut was done through the jig with the saw. This last cutting block and bone cuts were removed. The medial meniscus remnant was removed. The femoral component trial was placed on the distal femur and the 7 mm spacer block confirmed appropriate balancing in flexion, extension, and again 2 mm of medial joint space opening in about 20 degrees of flexion. Tibial template was inserted and the size confirmed to be appropriate. The keel was used by hand to remove bone from the slot and the tibial peg drill was used in the peg hole. The pulse lavage was used to clean the bone surfaces. SmartSet medium viscosity cement was prepared. At the appropriate time during the early working phase, the cement was applied to the backside of the tibial and femoral components. Then, cement was carefully placed and pressurized into the proximal tibia taking care to only have minimal cement posteriorly. The tibial component was inserted at an angle and then impacted directing pressure from posterior to anterior to keep the flow of cement from posterior to anterior. Cement was then applied to the distal femur and the femoral component impacted. Excess cement was removed. The knee was brought into full extension and this position with axial load was maintained until the cement was completely hardened at 25 minutes due to cold OR. A combination R.E.C.K. (123 mg Ropivacaine, 0.25 mg Epinephrine, 0.04 mg Clonidine, and 15 mg Ketorolac) 50 ml injection was widely infiltrated about the knee. The wound was copiously irrigated with the pulse lavage and Surgiphor. Tibial tray mobile sales technician was removed, and the final tibial insert was inserted, 8 mm chosen for best stability for activities without compromising motion, and clicked into place. The knee was tested through range of motion found to be stable with equal balancing from full extension to flexion past 90 degrees and a couple millimeters of medial joint space opening in about 20 degrees of flexion. Appropriate hemostasis was achieved. The capsule was approximated using #1 Vicryl in a figure-of-8 interrupted fashion and then closed using Stratafix #1 PDS barbed suture in a running fashion. The superficial layers were irrigated. Subcutaneous tissue was closed using 2-0 Monocryl in a buried interrupted fashion. Skin was closed using 3-0 Monocryl in a buried subcuticular fashion. The skin incision was glued and then covered with a Mepilex Ag dressing. An Deshawn wrap was applied from the foot up to the thigh. The patient awoke from anesthesia without complication was transferred to the recovery room in stable condition. Date of Procedure: 05/28/24
--- NOTE | 2024-05-28 07:23 | W.ANESNERVE ---
Nerve Block Single Injection Procedure Date and Time Date Performed: 05/28/24 Procedure Start: 07:16 Location Where Procedure Performed Procedure Location: Day Surgery Unit Reason Performed: Postoperative Analgesia Requesting Provider: Mike Guthrie Timeout Performed Timeout Performed: Yes Monitoring Used ECG, Blood Pressure and SpO2 Sterility Sterility: Hand Hygiene, Surgical Cap, Surgical Mask, Sterile Gloves and Chlorhexidine Sedation Given During Procedure Sedation Given (Indicate Dose Given): Propofol IV Dose:: 15 mg and Precedex IV Dose:: 12 mcg Patient Mental Status Patient Mental Status: Sedate with meaningful communication Nerve Block 1st Nerve Block: Laterality: Right Block Type: Adductor Canal Ultrasound Image Saved?: Yes Needle / Catheter Used: 100mm SonoPlex II Local Anesthetic Bolus (Indicate Dose Given): Lidocaine used for local infiltration of skin, Injected in 3-5ml increments after negative blood aspiration and Bupivacaine 0.25% Dose:: 10 mL Additives (Indicate Dose Given): None Ultrasound: Sterile probe cover and gel used Nerve Stimulator: Supplement to Ultrasound use and No twitch or parasthesia noted < 0.5 mA Paresthesia: None Procedure Tolerated: No Complications Procedure Outcome: Successful Performed By: Hector Aguirre 2nd Nerve Block: Laterality: Right Block Type: Other (anterior femoral cutaneous ) Ultrasound Image Saved?: Yes Needle / Catheter Used: 100mm SonoPlex II Local Anesthetic Bolus (Indicate Dose Given): Bupivacaine 0.25% Dose:: 5 mL Additives (Indicate Dose Given): None Ultrasound: Sterile probe cover and gel used Nerve Stimulator: Supplement to Ultrasound use and No twitch or parasthesia noted < 0.5 mA Paresthesia: None Procedure Tolerated: No Complications Procedure Outcome: Successful Performed By: Hector Aguirre
[2024-05-28] MEDS: ceFAZolin 2 GM/50 ML BAG IVPB (07:34)
[2024-05-28] MEDS: TRANEXAMIC ACID/SOD. CHL. 1,000 MG/100 ML BAG 600 MG IVPB (07:37)
[2024-05-28] MEDS: Bupivacaine 0.25% Pres-Free W/EPI 30 ML VIAL (08:18)
--- NOTE | 2024-05-28 11:21 | W.ANESPOSTOP ---
Postoperative Evaluation Date, Time and Location Date Performed: 05/28/24 Time Performed: 11:21 Patient Location: PACU Vital Signs Most Recent Imported Vital Signs: Most Recent Vital Signs Temp Pulse Resp BP Pulse Ox 36.4 C L 88 19 160/86 H 95 05/28/24 11:11 05/28/24 07:07 05/28/24 07:07 05/28/24 07:07 05/28/24 07:07 Pain Score Most Recent Pain Score: Most Recent Pain Score Pain Level 1 05/28/24 07:07 Assessment Mental Status: Arousable with meaningful communication Airway and Respiratory Function: Patent airway with normal (patient baseline) respiratory exam Cardiovascular Function: Hemodynamically Stable Hydration Status: Adequately Hydrated Nausea & Vomiting: No Nausea or Vomiting Pain: Pain is tolerable per patient (grimacing a little, still waking up. PACU orders in place. ) Peripheral Nerve Block: Regional nerve block not resolved at time of post operative discharge
[2024-05-28] MEDS: ceFAZolin 1 GM/50 ML BAG IV (11:45)
--- NOTE | 2024-05-28 11:46 | DI.RAD_ITS ---
Exam(s) XR KNEE RT 2V AP,LAT EXAM: XR KNEE RT 2V AP,LAT INDICATION: Arthritis. COMPARISON: CR XR KNEE RT 2V AP,LAT from 04/06/2024 TECHNIQUE: 2D digital imaging was performed. Two views. FINDINGS: Status post placement of a medial femoral tibial joint space prosthesis the alignment appears satisfa ctory. Residual postsurgical air in the soft tissues. DATA REPOSITORY: RADIATION DOSE DELIVERED:
[2024-05-28] MEDS: fentaNYL 100 MCG/2 ML VIAL IVP (11:56)
--- NOTE | 2024-05-28 14:27 | IN_ITS ---
PT Notes Physical Therapy Day Surgery Initial Evaluation Date: 05/28/2024 Referring Doctor: Mike Guthrie MD PT Orders: PT CONSULT: S/P Ortho Surgery. Protected weight bearing with crutches or walker Precautions: Protected weight bearing through R LE with AD. Patient Profile/Admitting Diagnosis: Kaylin is a 78-year-old female with primary unilateral osteoarthritis of the right knee medial compartment and is status post right knee medial compartmental arthroplasty on postoperative day 0. 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 denies Benign paroxysmal positional vertigo Surgical History History of tonsillectomy H/O tubal ligation History of elbow surgery History of cystocele repair History of colonoscopy History of cholecystectomy History of appendectomy History of hysterectomy History of partial mastectomy 05/28/2024 Social History/Home Situation: Lives with in a private home with 3 steps to enter with a rail on one side there is. There is another flight of steps to the bedroom of the house with a rail at a wall on each side. Equipment Owned/DME: [facility] Subjective: Denied headache, chest pain, and lightheadedness throughout session Objective: General Observation: Wound dressing to right knee. present throughout evaluation. Mental Status: Alert and oriented x 4 and O x 4 [] Pain: 1/10 in the R knee ROM: Right Lower Extremity: Hip flexion WFL. Hip abduction WFL. Knee flexion about 5 degrees to 90 degrees. Ankle dorsiflexion WFL. Ankle plantarflexion WFL. Left Lower Extremity: Hip flexion WFL. Hip abduction WFL. Knee flexion WFL. Ankle dorsiflexion WFL. Ankle plantarflexion WFL. Strength: Right Lower Extremity: Hip flexors 4/5. Hip abductors 4/5. Knee flexors 3-/5. Knee extensors 3-/5. Ankle dorsiflexors 5/5. Ankle plantarflexors 5/5. Left Lower Extremity:Hip flexors 5/5. Hip abductors 5/5. Knee flexors 5/5. Knee extensors 5/5. Ankle dorsiflexors 5/5. Ankle plantarflexors 5/5. Sensation: Intact tested pain and light pressure in bilateral lower extremities Bed Mobility/Transfers: Minimal cueing provided for use of B hands as needed for support, movement sequence, AD management, and posture to reduce fall risk and minimize pain report Sit to stand standby assist with FWW Stand to sit contact-guard assist with FWW Bed to chaircontact-guard assist with FWW Gait: Facilitated safe and correct performance of level surface ambulation covering a distance of 100 feet using front wheeled walker with step through gait pattern requiring only standby assist and minimal verbal cueing for AD management, limb movement sequence, weight distribution, and posture to minimize pain reported reduce fall risk. Stairs: Guided patient with safe and correct negotiation of 3 x 4 inch steps and 2 x 6 inch steps while holding onto bilateral rails with step to gait pattern requiring contact-guard assist and minimal verbal cueing for limb movement sequence, hand placement, weight distribution through extremities, and posture to minimize pain reported reduce fall risk. Balance: Static Sitting: Normal Dynamic Sitting: Normal Static Standing: Fair Dynamic Standing: Fair Special Tests: Mobility Limitations Standardized Measure [facility] AM-PAC 6 clicks Basic Mobility Inpatient Short Form: Raw Score: 23 CMS Score: 11% deficit Informed Consent/Education: Patient instructed in purpose of PT consult. Packet containing partial TKA exercise protocol has been given to patient. Education and training on initial set of exercises that can be done at home have been completed with patient. Trained patient with correct performance of exercises below to maximize motor control, joint flexibility, soft tissue extensibility of the R knee mu sculature: Access Code: [email or web address] URL: [email or web address] Date: 05/22/2024 Prepared by: Jenny Thurman Exercises - Supine Quad Set - 1 x daily - 7 x weekly - 1 sets - 10 reps - 5 hold - Supine Heel Slide - 1 x daily - 7 x weekly - 1 sets - 10 reps - 5 hold - Supine Ankle Pumps - 1 x daily - 7 x weekly - 1 sets - 10 reps - 5 hold - Small Range Straight Leg Raise - 1 x daily - 7 x weekly - 1 sets - 10 reps - 5 hold - Seated March - 1 x daily - 7 x weekly - 1 sets - 10 reps - 5 hold Assessment: Patient requires the use of a front wheeled walker for mobility ADL performance to maximize independence and reduce fall risk.Patient presents with clinical signs and symptoms consistent with current/admitting diagnoses that have resulted to mobility limitations, gait instability, generalized weakness, and impairment of motor control as demonstrated by the following impairment level findings: 1. Decreased strength to left knee major muscle groups 2. Impaired standing balance he have to stand up from the air 3. Limitation of joint range of motion in left knee Impairments are contributing to the following functional limitations: 1. Inability to safely ambulate without assistive device 2. Increase completion time for mobility ADL performance 3. Increased fall risk Patient is assessed as a 60534 moderate complexity based on the following: History: 78-year-old female with impairment level findings, functional limitations, and past medical history as indicated above Examination: Demonstrable impairment in strength, balance, and mobility level with underlying impairments and functional limitations as documented above Presentation: Evolving Decision Makin moderate complexity Goals: N/A. PT evaluation and 1-2 treatment sessions only for functional mobility training using recommended AD and for HEP instruction. Plan of Care/Treatment Plan: N/A. PT evaluation and 1-2 treatment session only for functional mobility training using recommended AD and for HEP instruction. DISCHARGE RECOMMENDATIONS: Home when medically cleared by orthopedic surgeon. Recommend outpatient PT services in order to optimize functional mobility outcomes and facilitate return to independent community ambulation without an assistive device. TREATMENT CODE/TIME: 64495 x 1 unit (14: 27?14: 52). Thank you for the opportunity to participate in the care of this patient. Jenny Thurman PT, DPT, CLT [facility] [place], [place]
== END 2024-05-28 15:04 | disposition home or self-care (01) ==
PROVIDERS: PCP Internal Medicine; Visit Provider Student in an Organized Health Care Education/Training Program
PROC: (CPT 27446; principal; 2024-05-28 07:30)
DX: M17.11 Unilateral primary osteoarthritis, right knee (principal); G89.18 Other acute postprocedural pain
CPT/HCPCS: 27446; 64447; 64450; 97162; 73560; C1776; J0665; J0690; J1100; J2371; J2405; J2704; J3010

== ENCOUNTER 2024-06-09 14:54 | Outpatient (CLI) | payer MEDICARE, BC, SELFPAY ==
--- NOTE | 2024-06-09 10:15 | DI.RAD_ITS ---
Exam(s) XR KNEE RT 2V AP,LAT EXAM: XR KNEE RT 2V AP,LAT CLINICAL HISTORY: F/U RIGHT UKA. TECHNIQUE: 2D digital imaging was performed. Two images were obtained. AP and lateral views were ob tained. COMPARISON: CR XR KNEE RT 2V AP,LAT from 05/28/2024 FINDINGS: BONES: There are stable post operative changes of a unilateral right knee arthroplasty present. No f racture or dislocation. There is an enthesophyte at the superior patella. JOINTS: The orthopedic hardware is in good position. No evidence of hardware loosening. There is a joint effusion. SOFT TISSUE: Edema seen in the suprapatellar region. IMPRESSION: 1. Stable right unilateral knee arthroplasty. 2. Moderate joint effusion. 3. There is edema seen in the suprapatellar region. If there is concern for tendon injury, MRI may b e considered. DATA REPOSITORY: RADIATION DOSE DELIVERED:
== END 2024-06-09 14:55 | disposition home or self-care (01) ==
LOC: DIORS 14:55
PROVIDERS: PCP Internal Medicine; Referring Provider Internal Medicine; Visit Provider Student in an Organized Health Care Education/Training Program
DX: Z47.1 Aftercare following joint replacement surgery (principal); Z96.651 Presence of right artificial knee joint
CPT/HCPCS: 99024; 73560

== ENCOUNTER 2024-07-21 11:00 | Outpatient (CLI) | payer MEDICARE, BC, SELFPAY ==
--- NOTE | 2024-07-21 10:30 | DI.RAD_ITS ---
Exam(s) XR KNEE RT 2V AP,LAT EXAM: XR KNEE RT 2V AP,LAT CLINICAL HISTORY: F/U RIGHT UKA. TECHNIQUE: 2D digital imaging was performed. Two images were obtained. AP and lateral views were ob tained. COMPARISON: CR XR KNEE RT 2V AP,LAT from 05/28/2024 CR XR KNEE RT 2V AP,LAT from 06/09/2024 FINDINGS: BONES: There are stable post operative changes of a right unilateral knee arthroplasty present. No f racture or dislocation. There is an enthesophyte at the superior patella. JOINTS: The orthopedic hardware is in good position. No evidence of hardware loosening. There is a joint effusion. SOFT TISSUE: Normal. IMPRESSION: 1. Stable right unilateral knee arthroplasty. 2. Small joint effusion. DATA REPOSITORY: RADIATION DOSE DELIVERED:
== END 2024-07-21 11:01 | disposition home or self-care (01) ==
LOC: DIORS 11:00
PROVIDERS: PCP Internal Medicine; Referring Provider Internal Medicine; Visit Provider Student in an Organized Health Care Education/Training Program
DX: M17.11 Unilateral primary osteoarthritis, right knee (principal); M25.661 Stiffness of right knee, not elsewhere classified
CPT/HCPCS: 99214; 73560

== ENCOUNTER 2024-07-29 09:49 | Day surgery (SDC) | payer MEDICARE, BC, SELFPAY ==
[2024-07-29] VITALS (18 sets, daily range): BP systolic 106–166; BP diastolic 60–97; PULSE 72–102; RESP 8–23; TEMP 36.1–36.6; O2SAT 92–99; BMI 26.1
--- NOTE | 2024-07-29 07:18 | W.PM.DSUDISC ---
Date of service: 07/29/24 Discharge Plan Disposition Patient Disposition: Home Discharge Details Attending Provider: Mike Guthrie Primary Care Provider: Donna Ramos Home Meds and New Rx's Prescriptions: New naproxen 250 mg tablet 250 mg PO BID PRN (Reason: Moderate pain) Qty: 30 0RF tramadol 50 mg tablet 50 mg PO TID PRNQty: 14 0RF Continued zoledronic acid 4 mg/5 mL solution 2 mg IV ONCE Rx Instructions: administer over at least 15 mins letrozole 2.5 mg tablet 2.5 mg PO DAILY atorvastatin 10 mg tablet 10 mg PO QPM losartan 50 mg tablet 50 mg PO DAILY metoprolol succinate 25 mg tablet extended release 24 hr 25 mg PO DAILY omeprazole 20 mg capsule,delayed release(DR/EC) 20 mg PO DAILY cholecalciferol (vitamin D3) [Vitamin D3] 50 mcg (2,000 unit) capsule 50 mcg PO DAILY Discharge Instructions Additional Instructions: Surgery: Right knee manipulation under anesthesia 07/29/2024; Right medial unicondylar knee replacement 05/28/24 Activity: Encourage increasing range of motion. Perform daily stretching exercises. Resume physical therapy tomorrow. Prescriptions: Naproxen 250 mg take 1-2 every 12 hours with a meal as needed for moderate pain Tramadol 50 mg take 1 every 8 hours as needed for severe pain You may use [id number] Tylenol (acetaminophen) as needed for mild pain. These pain medications may be taken all at once or in different combinations as needed. Also, recommend Colace (docusate) as a stool softener as surgery and pain medicine cause constipation. You may try [id number] diphenhydramine (Benadryl) 25-50 mg nightly as a sleep aid Dressings: None Follow-up: 10-[address] Guthrie You may take off the leg compression stockings this evening at home. You may also leave them on a few days longer if you have a history of leg swelling or edema. Let us know right away if you develop any redness, drainage, fevers, chest pain, or trouble breathing. Do not drink alcohol or drive for at least 24 hours after anesthesia. Please call the office during business hours with any questions or concerns. Discharge Orders Discharge Orders: Discharge Order (Routine); Ordered 07/29/24 Ordered By: Usama Magana DS: Diagnosis Discharge Diagnosis (1) Stiffness of right knee: Status: Acute
--- NOTE | 2024-07-29 07:36 | W.PM.OP ---
Operative Note Operative Note PRE-OP DIAGNOSIS: Right knee stiffness after partial knee replacement POST-OP DIAGNOSIS: same PROCEDURE: Right shoulder manipulation under anesthesia, CPT# 40167 SURGEON: Mike Guthrie ESCORT CAR DRIVER: None None ANESTHESIA TYPE: General:No Airway and Primary Nerve Block Refer to Anesthesia Record COMPLICATIONS: None Patient's condition: stable Indications: Please see complete medical record for details. Procedure Description: In the operating room, general anesthesia was induced. The patient was positioned supine on the stretcher. Bony prominences were padded. Preoperative antibiotics were omitted. The correct patient, procedure, and site of procedure were all verified prior to beginning. The right knee was examined with a few degrees short of full extension and about 90 degrees of flexion. Very gradually and gently using a short lever arm while maintaining an anterior drawer on the proximal tibia the knee was brought into flexion quite readily with very soft gradual releases slowly into more flexion while alternating hyperextension a few degrees and then back into flexion with this alternating process leading to full restorationism of flexion past 145 degrees. There was no significant releases but this very gradual release and increased flexion, which was done very gently and progressively. The knee was examined and quite stable, the incision was well intact, anterior drawer and valgus remained excellent. Patellar mobility was confirmed and encouraged. Endpoints of flexion and extension were then stretched and motion alternated numerous times. The patient awoke from anesthesia without complication and was transferred to the recovery room in a stable condition. Date of Procedure: 07/29/24
[2024-07-29] MEDS: Lactated Ringers 1,000 ML 30 ML IV (10:23)
--- NOTE | 2024-07-29 10:36 | ANES.PREOP_ITS ---
General Info Date of Service Date Performed: 07/29/24 Height: 5 ft 6 in Weight: 73.5 kg Body Mass Index (BMI): 26.1 Surgical Procedure: Operation Date: 07/29/24 11:10 Proposed Procedure Side Surgeon p Knee Manipulation Mike Guthrie MD Actual Procedure Side Surgeon p Knee Manipulation Mike Guthrie MD Meds Allergies and Home Medications Allergies Allergy/AdvReac Type Severity Reaction Status Date / Time codeine Allergy Unknown Unknown Verified 07/29/24 10:12 morphine AdvReac Intermediate Nausea Verified 07/29/24 10:12 Home Medication ?Medication ?Instructions ?Recorded atorvastatin 10 mg tablet 10 mg PO QPM 01/27/24 losartan 50 mg tablet 50 mg PO DAILY 01/27/24 metoprolol succinate 25 mg 25 mg PO DAILY 01/27/24 tablet,extended release 24 hr omeprazole 20 mg capsule,delayed 20 mg PO DAILY 01/27/24 release letrozole 2.5 mg tablet 2.5 mg PO DAILY 02/12/24 zoledronic acid 4 mg/5 mL 2 mg IV ONCE 02/12/24 intravenous solution cholecalciferol (vitamin D3) 50 50 mcg PO DAILY General Health 05/27/24 mcg (2,000 unit) capsule (Vitamin D3) Current Visit Medications: Current Medications Generic Name Dose Route Start Last Admin Trade Name Freq PRN Reason Stop Dose Admin Ringer's Solution 1,000 mls @ 30 mls/hr 07/29/24 06:00 07/29/24 10:23 IV 07/29/24 23:59 30 mls/hr INFUSION ROBBIN Administration IV Miscellaneous Supplies 1 each 07/29/24 06:00 Iv Access IV 07/29/24 23:59 DIRECTED ROBBIN Sodium Chloride 0 ml 07/29/24 06:00 Normal Saline Flush 10 Ml Syr IV 07/29/24 23:59 PRN PRN Sodium Chloride 0 ml 07/29/24 06:00 Normal Saline 10 Ml Vial IJ 07/29/24 23:59 DIRECTED PRN Sterile Water 0 ml 07/29/24 06:00 Water,Injection,Sterile 10 Ml Vial IJ 07/29/24 23:59 DIRECTED PRN Tramadol HCl 50 mg 07/29/24 07:19 Tramadol 50 Mg Tab PO 08/28/24 07:18 Q6H PRN PRN PFSH Active Problems Active Problems: Problem Status Onset Code Stiffness of right knee Acute M25.661 Arthritis of right knee Acute M17.11 Polyp of colon Acute K63.5 Neuropathy Acute G62.9 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 denies Benign paroxysmal positional vertigo Surgical History Surgical History History of tonsillectomy H/O tubal ligation History of elbow surgery History of cystocele repair History of colonoscopy History of cholecystectomy History of appendectomy History of hysterectomy History of partial mastectomy Tobacco Smoking/Tobacco Use Status: Former Tobacco Use Passive smoking exposure: No Alcohol Alcohol Intake: never Substance Use Substance use: Never Substance use type: does not use Vital Signs and Lab Results Vital Signs Most Recent Vital Signs in EMR: Most Recent Vital Signs Temp Pulse Resp BP Pulse Ox 36.1 C L 102 H 18 165/97 H 98 07/29/24 10:15 07/29/24 10:15 07/29/24 10:15 07/29/24 10:15 07/29/24 10:15 Lab Results Blood Type / Crossmatch: No Data to Display Complete Blood Count: No Data to Display Complete Metabolic Panel: No Data to Display Liver Function Panel: No Data to Display Coagulation Panel: 2 No Data to Display Cardiac Panel: No Data to Display Arterial Blood Gas: No Data to Display Venous Blood Gas: No Data to Display Pancreas Panel: No Data to Display Thyroid Panel: No Data to Display Infectious Disease: No Data to Display Blood Cultures: No Data to Display Toxicology Panel: No Data to Display Anesthesia Assessment and Plan Anesthesia History Personal History: PONV Family History: No Family History of Anesthesia Complications Exercise Tolerance Exercise Tolerance: Metabolic Equivalents>4 Pertinent Negatives Pertinent Negatives: No Major Cardiovascular Symptoms or Complaints and No Major Pulmonary Symptoms or Complaints Cardiac & Pulmonary Exam Cardiac Exam: Normal S1/S2 Heart Sounds Pulmonary Exam: Clear Bilateral Breath Sounds Implantable Cardiac Device Does patient have a Pacemaker or an ICD?: No Airway Exam Known Difficult Airway: No Mallampati Class: 2 Mouth Opening: Normal (> 3cm) Thyromental Distance: Less than 3 cm Neck Range of Motion: Limited ROM Neck Circumference: Normal Teeth Condition: Normal Dentition ASA Classification ASA Score: ASA 2 Emergency Case?: No NPO Status NPO Status: NPO Clears >2 hours, Solids >8 hours Anesthesia Plan Resuscitation Status: Full Code Anesthesia Technique: General Anesthesia Airway Planned: Natural Airway Pain Management: Surgeon and patient request nerve block (femoral per surgeon request) Monitors Used: Standard Monitors
--- NOTE | 2024-07-29 10:50 | W.ANESNERVE ---
Nerve Block Single Injection Procedure Date and Time Date Performed: 07/29/24 Procedure Start: 10:44 Location Where Procedure Performed Procedure Location: Day Surgery Unit Reason Performed: Postoperative Analgesia Requesting Provider: Mike Guthrie Timeout Performed Timeout Performed: Yes Monitoring Used ECG, Blood Pressure, SpO2 and See EMR for corresponding vital signs Sterility Sterility: Hand Hygiene, Surgical Cap, Surgical Mask, Sterile Gloves, Sterile Drape/Sheet and Chlorhexidine Sedation Given During Procedure Sedation Given (Indicate Dose Given): Versed IV Dose:: 2 mg Patient Mental Status Patient Mental Status: Sedate with meaningful communication Nerve Block 1st Nerve Block: Laterality: Right Block Type: Femoral Ultrasound Image Saved?: Yes Needle / Catheter Used: 100mm SonoPlex II Local Anesthetic Bolus (Indicate Dose Given): Lidocaine used for local infiltration of skin, Injected in 3-5ml increments after negative blood aspiration, Bupivacaine 0.25% Dose:: 10 ml and Exparel Dose:: 10 ml Additives (Indicate Dose Given): None Ultrasound: Sterile probe cover and gel used Nerve Stimulator: Supplement to Ultrasound use and No twitch or parasthesia noted < 0.5 mA Paresthesia: None Post Procedure Pain score (0-10): 0 Procedure Tolerated: No Complications and Patient tolerated well Procedure Outcome: Successful Performed By: Evelina Alvarez
--- NOTE | 2024-07-29 12:19 | W.ANESPOSTOP ---
Postoperative Evaluation Date, Time and Location Date Performed: 07/29/24 Time Performed: 11:36 Patient Location: PACU Vital Signs Most Recent Imported Vital Signs: Most Recent Vital Signs Temp Pulse Resp BP Pulse Ox 36.1 C L 73 16 141/80 H 95 07/29/24 11:43 07/29/24 11:43 07/29/24 11:43 07/29/24 11:43 07/29/24 11:43 Pain Score Most Recent Pain Score: Most Recent Pain Score Pain Level 0 07/29/24 11:43 Assessment Mental Status: Awake (Alert & Oriented to Patient Baseline) Airway and Respiratory Function: Patent airway with normal (patient baseline) respiratory exam Cardiovascular Function: Hemodynamically Stable Hydration Status: Adequately Hydrated Nausea & Vomiting: No Nausea or Vomiting Pain: Pt. Denies Any Pain Peripheral Nerve Block: Regional nerve block not resolved at time of post operative discharge
== END 2024-07-29 12:39 | disposition home or self-care (01) ==
LOC: SUR 09:49
PROVIDERS: PCP Internal Medicine; Visit Provider Student in an Organized Health Care Education/Training Program
PROC: (CPT 27570; principal; 2024-07-29 11:00)
DX: M25.661 Stiffness of right knee, not elsewhere classified (principal); G89.18 Other acute postprocedural pain
CPT/HCPCS: 27570; 64447; J0665; J0666; J1100; J1885; J2250; J2405; J2704

== ENCOUNTER 2024-08-11 14:13 | Outpatient (CLI) | payer MEDICARE, BC, SELFPAY ==
--- NOTE | 2024-08-11 14:00 | DI.RAD_ITS ---
Exam(s) XR KNEE RT 2V AP,LAT EXAM: XR KNEE RT 2V AP,LAT CLINICAL HISTORY: F/U RIGHT UKA. TECHNIQUE: 2D digital imaging was performed. COMPARISON: CR XR KNEE RT 2V AP,LAT from 06/09/2024 CR XR KNEE RT 2V AP,LAT from 07/21/2024 FINDINGS: Two views Stable position and alignment of the components of the right knee medial hemiarthroplasty. No fractu re or loosening evident. No evidence of osteomyelitis. IMPRESSION: Stable satisfactory appearance. DATA REPOSITORY: RADIATION DOSE DELIVERED:
== END 2024-08-11 14:14 | disposition home or self-care (01) ==
LOC: DIORS 14:13
PROVIDERS: PCP Internal Medicine; Visit Provider Student in an Organized Health Care Education/Training Program
DX: M25.661 Stiffness of right knee, not elsewhere classified (principal); Z47.89 Encounter for other orthopedic aftercare
CPT/HCPCS: 99024; 73560

== ENCOUNTER 2024-09-24 00:51 | Outpatient (CLI) | payer MEDICARE, BC, SELFPAY ==
[2024-09-24 08:38] LABS: ALT 23 U/L (14-59); AST 16 U/L (15-37); Albumin 3.7 g/dL (3.4-5.0); Alkaline Phosphatase 59 U/L (46-116); Anion Gap 8.4 mmol/L (3-11); BUN 21 mg/dL (7-18); Bilirubin, Total 0.5 mg/dL (0.2-1.0); CO2 26.6 mmol/L (21.0-32.0); Calcium 10.6 mg/dL (8.5-10.1); Chloride 106 mmol/L (98-107); Estimated GFR 64.63 (mL/min/1.73m2); Glucose 143 mg/dL (74-106); Potassium 4.2 mmol/L (3.5-5.1); Sodium 141 mmol/L (136-145); Total Protein 6.6 g/dL (6.4-8.2)
== END 2024-09-24 00:52 | disposition home or self-care (01) ==
LOC: LBO 00:51
PROVIDERS: PCP Internal Medicine; Visit Provider Nurse Practitioner Adult Health
DX: C50.911 Malignant neoplasm of unspecified site of right female breast (principal); Z17.0 Estrogen receptor positive status [ER+]; M85.80 Other specified disorders of bone density and structure, unspecified site; Z79.811 Long term (current) use of aromatase inhibitors; C50.011 Malignant neoplasm of nipple and areola, right female breast
CPT/HCPCS: 36415; 80053

== ENCOUNTER 2024-10-12 11:37 | Outpatient (CLI) | payer MEDICARE, BC, SELFPAY ==
--- NOTE | 2024-10-12 11:15 | DI.RAD_ITS ---
Exam(s) XR KNEE RT 2V AP,LAT EXAM: XR KNEE RT 2V AP,LAT CLINICAL HISTORY: F/U RIGHT UKA. TECHNIQUE: 2D digital imaging was performed. Two images were obtained. AP and lateral views were obtained. COMPARISON: CR XR KNEE RT 2V AP,LAT from 08/11/2024 FINDINGS: BONES: There are stable post operative changes of a right unicompartmental knee arthroplasty present. No fracture or dislocation. There is an enthesophyte at the superior patella. JOINTS: The orthopedic hardware is in good position. No evidence of hardware loosening. There is a joint effusion present. There is chondrocalcinosis seen in the lateral femoral tibial joint. SOFT TISSUE: Normal. IMPRESSION: Stable right unicompartmental knee arthroplasty. DATA REPOSITORY: RADIATION DOSE DELIVERED:
== END 2024-10-12 11:38 | disposition home or self-care (01) ==
PROVIDERS: PCP Internal Medicine; Referring Provider Internal Medicine; Visit Provider Student in an Organized Health Care Education/Training Program
DX: Z47.89 Encounter for other orthopedic aftercare (principal); M17.11 Unilateral primary osteoarthritis, right knee; M25.661 Stiffness of right knee, not elsewhere classified
CPT/HCPCS: 99213; 73560